=== PATIENT | female | born 2000 | race Caucasian/White ===

== ENCOUNTER → 2024-10-02 | Outpatient (CLI) | payer OTHER ==
[2024-10-02 12:39] LABS: BASOPHIL % 0.4 % (0.1-1.2); EOSINOPHIL # 0.3 10^3/uL (0.0-0.2); EOSINOPHIL % 3.3 % (0.0-5.0); HEMATOCRIT(ML) 44.3 % (36.0-46.0); HEMOGLOBIN 14.6 g/dL (12.0-15.0); IG % 0.1 % (0.00-0.50); LYMPHOCYTES # 2.82 10^3/uL1 (1.0-4.8); LYMPHOCYTES % 33.7 % (24.0-44.0); MEAN CORP HGB 27.7 pg (26-34); MEAN CORP VOLUME 84.1 fL (78-100); MONOCYTES # 0.7 10^3/uL (0.3-0.8); NEUTROPHIL # 4.6 10^3/uL (1.8-7.7); NEUTROPHILS % 54.5 % (41.0-85.0); RED BLOOD CELL 5.27 10^6/uL (4.00-5.20); WHITE BLOOD CELL 8.4 10^3/uL (4.5-11.0)
[2024-10-02 13:08] LABS: ANION GAP 10.4; CARBON DIOXIDE 26.6 mmol/L (20.0-32); CREATININE SERUM 0.91 mg/dL (0.59-1.40)
[2024-10-02 13:09] LABS: ALBUMIN(ML) 3.6 g/dL (3.4-5.0); ALBUMIN/GLOBULIN RATIO 0.923; BUN/CREATININE RATIO 7.69 (10.0-20.0); CALCIUM 8.7 mg/dL (8.4-10.5)
[2024-10-03 14:26] LABS: THYROGLOBULIN ANTIBODY 128.2 IU/mL (0.0-0.9)
== END | disposition home or self-care (01) ==
LOC: RAD 12:19
PROVIDERS: ATTEND Student in an Organized Health Care Education/Training Program
DX: R55 Syncope and collapse (principal); R00.2 Palpitations; G47.33 Obstructive sleep apnea (adult) (pediatric); R00.0 Tachycardia, unspecified; F41.1 Generalized anxiety disorder
CPT/HCPCS: 36415; 71046; 80053; 82550; 83735; 84439; 84443; 84480; 85025; 86376; 86800

== ENCOUNTER → 2024-10-07 | Outpatient (CLI) | payer OTHER | END | disposition home or self-care (01) | LOC: RAD 10:45 | PROVIDERS: ATTEND Student in an Organized Health Care Education/Training Program | DX: I07.1 Rheumatic tricuspid insufficiency (principal); R00.2 Palpitations; R55 Syncope and collapse; R00.0 Tachycardia, unspecified | CPT/HCPCS: 93306 ==

== ENCOUNTER 2025-08-27 08:01 | Day surgery (SDC) | payer OTHER ==
[2025-08-27] VITALS (33 sets, daily range): BP systolic 113–143; BP diastolic 47–86; PULSE 65–98; RESP 15–18; TEMP 97.9–98.4; O2SAT 97–100
[~2025-08-27 08:01] MED LIST: NITROLINGUAL TL ONE; NITROLINGUAL TL PRN
[2025-08-27] MEDS ORDERED: PROP10TA PO (08:36)
== END 2025-08-27 13:52 | disposition home or self-care (01) ==
LOC: SDC 08:01
PROVIDERS: ATTEND Internal Medicine
DX: G90.1 Familial dysautonomia [Riley-Day] (principal); F41.9 Anxiety disorder, unspecified; Z79.899 Other long term (current) drug therapy; Z98.890 Other specified postprocedural states
CPT/HCPCS: 36415; 81025; 84436; 84439; 84443; 84479; 93660

== ENCOUNTER → 2025-10-07 | Outpatient (CLI) | payer OTHER ==
[~2025-10-07] MED LIST changes: -NITROLINGUAL TL ONE; -NITROLINGUAL TL PRN; +PROP10TA PO
[2025-10-08 07:16] LABS: THYROID PEROXIDASE (TPO) AB 433.0 IU/mL (0-34); TRIIODOTHYRONINE (TOTALT3-REF) 125.0 ng/dL (71-180)
[2025-10-08 12:14] LABS: THYROGLOBULIN ANTIBODY 111.5 IU/mL (0.0-0.9)
== END | disposition home or self-care (01) ==
LOC: RAD 10:14
PROVIDERS: ATTEND Student in an Organized Health Care Education/Training Program
DX: R79.89 Other specified abnormal findings of blood chemistry (principal); R00.0 Tachycardia, unspecified
CPT/HCPCS: 36415; 76536; 84439; 84443; 84480; 86376; 86800